=== PATIENT | male | born 1975 | race African-American/Black ===

== ENCOUNTER 2022-04-05 08:02 | Inpatient (IN) ==
[2022-04-05 08:50] LABS: Basophils % 0.1 % (0.0-0.8); Hematocrit 46.9 VOL% (42.0-52.0); Hemoglobin 15.5 GM/DL (14.0-18.0); Immature Granulocytes % 0.4 %; Immature Granulocytes Absolute 0.04 #; Lymphocytes # 0.6 10*3/uL (1.4-4.0); Mean Corpuscular Volume 82.4 FL (87-102); Mean Platelet Volume 9.9 FL (9.6-12.0); Monocytes # 0.2 10*3/uL (0.11-0.8); Monocytes % 1.7 % (1.7-12.7); Neutrophils % 91.8 % (38.7-73.9); Red Blood Count 5.69 MC/CUMM (3.8-5.5); Red Cell Distribution Width 14.7 % (9.3-17.3); White Blood Count 9.3 T/CUMM (4-12)
[2022-04-05 08:54] LABS: Platelet Count 85 T/CUMM (130-400)
[2022-04-05 09:15] LABS: Lymphocytes 3 % (20-55); Total Cells Counted 100
[2022-04-05 09:16] LABS: Polychromasia Slight
[2022-04-05 09:17] LABS: Hypochromia Slight; Ovalocytes Slight; Platelet Estimate Adequate
[2022-04-05 09:24] LABS: Acetaminophen 9.3 UG/ML (10-30)
[2022-04-05 09:26] LABS: Salicylate < 2.8 MG/DL (2.8-20)
[2022-04-05 09:30] LABS: Alanine Aminotransferase 4044 U/L (16-61); Albumin 3.9 G/DL (3.4-5.0); Alkaline Phosphatase 101 U/L (45-117); Aspartate Amino Transferase 3608 U/L (0-37); Blood Urea Nitrogen 11 MG/DL (7-18); Calcium 9.3 MG/DL (8.5-10.1); Carbon Dioxide 24 MMOL/L (21-32); Chloride 100 MMOL/L (98-107); Estimated Glom Filtration Rate 106 ML/MIN; Glucose 145 MG/DL (74-106); Osmolality,Calculated 274.8 MOS/KG (273-304); Potassium 2.6 MMOL/L (3.5-5.1); Sodium 137 MMOL/L (136-145); Total Protein 8.3 G/DL (6.4-8.2)
[2022-04-05] MEDS ORDERED: ACETYLCYSTEINE INJ 15,000 MG in DEXTROSE 5% 100 ML IV ONE (09:49)
[2022-04-05 10:31] LABS: INR 2.9
[2022-04-05 10:43] LABS: PT Patient Result 29.9 SECS (10.5-12.0)
[2022-04-05 11:08] LABS: Barbiturates Screen,Urine Negative (Negative); Benzodiazepines Screen,Urine Negative (Negative); Cannabinoid Screen,Urine Negative (Negative); Opiate Screen,Urine Negative (Negative); Phencyclidine Screen,Urine Negative (Negative)
[2022-04-05] MEDS ORDERED: LORazepam 2 MG/1 ML VIAL IV STA (11:52)
[2022-04-05] MEDS ORDERED: HALOPERIDOL 5 MG/ML AMP IV STA (11:52)
[2022-04-05] MEDS ORDERED: diphenhydrAMINE 50 MG/1 ML VIAL IV STA (11:52)
[2022-04-05] MEDS ORDERED: PHYTONADIONE 10 MG/1 ML AMP SUBCUT STA (14:16)
[2022-04-05] MEDS ORDERED: ACETYLCYSTEINE INJ 5,000 MG in DEXTROSE 5% 250 ML IV ONE (16:04)
[2022-04-05 16:41] LABS: Hepatitis B Core IgM Quant 0.11 Index; Hepatitis B Surface Ag Quant < 0.10 Index; Hepatitis B Surface Ag Result Non-Reactive (NonReactive); Hepatitis C Virus Ab Quant 0.08 Index; Hepatitis C Virus Ab Result Non-Reactive (NonReactive)
[2022-04-05] MEDS ORDERED: POTASSIUM CHLORIDE RIDER 10 MEQ/100 ML PREMIX IV PRN (17:18)
[2022-04-05] MEDS ORDERED: MAGNESIUM SULF RIDER 2 GM/50 ML PREMIX IV PRN (17:19)
[2022-04-05] MEDS ORDERED: MAGNESIUM SULF RIDER 4 GM/100 ML PREMIX IV PRN (17:19)
[2022-04-05] MEDS ORDERED: GLUCAGON 1 MG VIAL IM PRN (17:42)
[2022-04-05] MEDS ORDERED: DEXTROSE 10% 250 ML BAG IV PRN (18:04)
[2022-04-05] MEDS ORDERED: LORazepam 2 MG/1 ML VIAL IV PRN (18:06)
[2022-04-05] MEDS: DEXT 5% NACL 0.9% KCL 40 MEQ 40 MEQ/1,000 ML BAG IV SCH (18:44)
[2022-04-05] MEDS ORDERED: ACETYLCYSTEINE IV ONE (20:00)
[2022-04-05] MEDS ORDERED: DEXTROSE 5% IV ONE (20:00)
[2022-04-05] MEDS ORDERED: INSULIN LISPRO 100 UNIT/ML SUBCUT SCH (21:00)
[2022-04-05] MEDS: ACETYLCYSTEINE IV ONE (21:43)
[2022-04-05] MEDS: DEXTROSE 5% IV ONE (21:43)
[2022-04-06 00:40] LABS: Basophils % 0.1 % (0.0-0.8); Hematocrit 42.5 VOL% (42.0-52.0); Hemoglobin 13.8 GM/DL (14.0-18.0); Immature Granulocytes % 0.3 %; Immature Granulocytes Absolute 0.05 #; Lymphocytes # 0.5 10*3/uL (1.4-4.0); Lymphocytes % 3.5 % (21.2-54.2); Mean Corpuscular HGB Conc 32.5 GM/DL (32-36); Monocytes # 0.3 10*3/uL (0.11-0.8); Monocytes % 1.6 % (1.7-12.7); Neutrophils % 94.5 % (38.7-73.9); Platelet Count 88 T/CUMM (130-400); Red Blood Count 5.12 MC/CUMM (3.8-5.5); Red Cell Distribution Width 14.8 % (9.3-17.3); White Blood Count 15.3 T/CUMM (4-12)
[2022-04-06 00:52] LABS: INR 3.6
[2022-04-06 00:55] LABS: PT Patient Result 36.2 SECS (10.5-12.0)
[2022-04-06 01:06] LABS: Lymphocytes 5 % (20-55); Platelet Estimate Decreased; Total Cells Counted 100
[2022-04-06 03:10] LABS: Albumin 2.9 G/DL (3.4-5.0); Bilirubin,Total 3.7 MG/DL (0.20-1.00); Calcium 7.6 MG/DL (8.5-10.1); Osmolality,Calculated 284.4 MOS/KG (273-304); Potassium 3.7 MMOL/L (3.5-5.1); Thyroid Stimulating Hormone 0.765 uIU/ml (0.358-3.74); Total Protein 6.8 G/DL (6.4-8.2); VLDL Cholesterol 17.2 MG/DL
[2022-04-06] MEDS: DEXT 5% NACL 0.9% KCL 40 MEQ 40 MEQ/1,000 ML BAG IV SCH (03:11)
[2022-04-06] MEDS: DEXTROSE 5% IV ONE (03:18)
[2022-04-06] MEDS: ACETYLCYSTEINE IV ONE (03:18)
[2022-04-06] MEDS: LACTULOSE 20 GM/30 ML UDCUP PO SCH ×5 (05:55→21:52)
[2022-04-06] MEDS: DEXTROSE 5% NACL 0.45% 1,000 ML IV SCH ×3 (07:29→23:41)
[2022-04-06] MEDS: ONDANSETRON 4 MG/2 ML VIAL IV PRN ×2 (10:03→15:22)
[2022-04-06 14:28] LABS: Mucus,Urine Occasional /LPF (Occasional); RBC,Urine 630 /HPF (0-4); Squamous Epithelial Cell,Urine Occasional /HPF (0-10)
[2022-04-06 14:44] LABS: Bilirubin,Urine Small mg/dL (Negative); Blood, Urine Large mg/dL (Negative); Glucose,Urine (UA) 100 mg/dL (Negative); Ketones,Urine 15 mg/dL (Negative); Nitrite,Urine Negative (Negative); Protein,Urine 100 mg/dL (Negative); Urine Appearance Clear (Clear); Urine Color Yellow (Yellow); Urine Specific Gravity > 1.030 (1.001-1.035); Urine Urobilinogen 0.2 eU/dL (<2.0); Urine pH 5.5 (4.5-8.0)
[2022-04-06 17:13] LABS: INR 3.1
[2022-04-06 17:36] LABS: Albumin 2.4 G/DL (3.4-5.0); Bilirubin,Total 2.4 MG/DL (0.20-1.00); Calcium 6.8 MG/DL (8.5-10.1); Osmolality,Calculated 288.6 MOS/KG (273-304); Potassium 2.7 MMOL/L (3.5-5.1); Total Protein 5.8 G/DL (6.4-8.2)
[2022-04-06] MEDS ORDERED: DEXTROSE 5% IV ONE (18:00)
[2022-04-06] MEDS ORDERED: ACETYLCYSTEINE IV ONE (18:00)
[2022-04-06 19:31] LABS: Albumin 2.9 G/DL (3.4-5.0); Bilirubin,Total 2.8 MG/DL (0.20-1.00); Calcium 8.1 MG/DL (8.5-10.1); Potassium 3.2 MMOL/L (3.5-5.1); Total Protein 6.5 G/DL (6.4-8.2)
[2022-04-06] MEDS ORDERED: POTASSIUM CHLORIDE 20 MEQ TABLET PO ONE (19:49)
[2022-04-06] MEDS ORDERED: hydrALAZINE 20 MG/1 ML VIAL IV ONE (23:19)
[2022-04-07] MEDS ORDERED: LABETALOL 20 MG/4 ML SYRINGE IV ONE (00:31)
[2022-04-07] MEDS: ONDANSETRON 4 MG/2 ML VIAL IV PRN ×2 (01:17→06:17)
[2022-04-07] MEDS: LACTULOSE 20 GM/30 ML UDCUP PO SCH ×2 (01:23→06:03)
[2022-04-07 04:14] LABS: Basophils % 0.2 % (0.0-0.8); Hematocrit 42.2 VOL% (42.0-52.0); Hemoglobin 14.5 GM/DL (14.0-18.0); Immature Granulocytes % 0.4 %; Immature Granulocytes Absolute 0.02 #; Lymphocytes # 0.8 10*3/uL (1.4-4.0); Mean Corpuscular HGB Conc 34.4 GM/DL (32-36); Mean Corpuscular Volume 80.2 FL (87-102); Mean Platelet Volume 10.3 FL (9.6-12.0); Monocytes # 0.2 10*3/uL (0.11-0.8); Monocytes % 4.8 % (1.7-12.7); Neutrophils % 78.6 % (38.7-73.9); Platelet Count 67 T/CUMM (130-400); Red Blood Count 5.26 MC/CUMM (3.8-5.5); Red Cell Distribution Width 13.7 % (9.3-17.3); White Blood Count 4.8 T/CUMM (4-12)
[2022-04-07 04:40] LABS: Platelet Estimate Decreased
[2022-04-07 04:43] LABS: INR 2.4; Partial Thromboplastin Time 34.9 SECS (23.8-32.1)
[2022-04-07 04:45] LABS: PT Patient Result 25.1 SECS (10.5-12.0)
[2022-04-07 04:48] LABS: Albumin 2.7 G/DL (3.4-5.0); Bilirubin,Total 3.3 MG/DL (0.20-1.00); Calcium 7.9 MG/DL (8.5-10.1); Osmolality,Calculated 278.2 MOS/KG (273-304); Potassium 3.8 MMOL/L (3.5-5.1); Total Protein 6.2 G/DL (6.4-8.2)
[2022-04-07] MEDS: DEXTROSE 5% NACL 0.45% 1,000 ML IV SCH (08:26)
[2022-04-07] MEDS ORDERED: amLODIPine 5 MG TABLET PO SCH (09:00)
[2022-04-07] MEDS: LACTULOSE 20 GM/30 ML UDCUP NG SCH ×4 (09:42→21:00)
[2022-04-07 10:27] LABS: Bilirubin,Urine Small mg/dL (Negative); Glucose,Urine (UA) 100 mg/dL (Negative); Ketones,Urine Negative (Negative); Nitrite,Urine Negative (Negative); Protein,Urine >=300 mg/dL (Negative); RBC,Urine 121 /HPF (0-4); Urine Appearance Clear (Clear); Urine Color Yellow (Yellow)
[2022-04-07 10:28] LABS: Blood, Urine Large mg/dL (Negative); Urine Urobilinogen 0.2 eU/dL (<2.0)
[2022-04-07] MEDS ORDERED: DEXTROSE 5% IV SCH (11:00)
[2022-04-07] MEDS ORDERED: ACETYLCYSTEINE IV SCH (11:00)
[2022-04-07] MEDS ORDERED: amLODIPine 5 MG TABLET PO ONE (11:10)
[2022-04-07] MEDS: LABETALOL 20 MG/4 ML SYRINGE IV PRN (11:18)
[2022-04-07] MEDS: cloNIDine 0.1 MG TABLET PO SCH (21:00)
[2022-04-08] MEDS: LACTULOSE 20 GM/30 ML UDCUP NG SCH ×6 (02:40→21:22)
[2022-04-08] MEDS: LABETALOL 20 MG/4 ML SYRINGE IV PRN ×2 (04:00→18:22)
[2022-04-08 04:23] LABS: Basophils % 0.4 % (0.0-0.8); Eosinophils % 0.7 % (0.00-10.9); Hematocrit 42.1 VOL% (42.0-52.0); Hemoglobin 14.5 GM/DL (14.0-18.0); Immature Granulocytes % 0.2 %; Immature Granulocytes Absolute 0.01 #; Lymphocytes % 23.1 % (21.2-54.2); Mean Corpuscular HGB Conc 34.4 GM/DL (32-36); Mean Corpuscular Volume 78.5 FL (87-102); Monocytes # 0.4 10*3/uL (0.11-0.8); Monocytes % 9.4 % (1.7-12.7); NRBC # 0.03 10*3/uL; Neutrophils % 66.2 % (38.7-73.9); Platelet Count 80 T/CUMM (130-400); Red Blood Count 5.36 MC/CUMM (3.8-5.5); Red Cell Distribution Width 13.6 % (9.3-17.3); White Blood Count 4.5 T/CUMM (4-12)
[2022-04-08] MEDS: DEXTROSE 5% IV SCH ×2 (04:30→21:01)
[2022-04-08] MEDS: ACETYLCYSTEINE IV SCH ×2 (04:30→21:01)
[2022-04-08 04:31] LABS: INR 1.8; PT Patient Result 18.9 SECS (10.5-12.0)
[2022-04-08 04:40] LABS: Hypochromia Slight; Microcytosis Slight; Platelet Estimate Decreased
[2022-04-08 04:54] LABS: Albumin 2.7 G/DL (3.4-5.0); Bilirubin,Total 4.9 MG/DL (0.20-1.00); Calcium 8.1 MG/DL (8.5-10.1); Total Protein 6.1 G/DL (6.4-8.2)
[2022-04-08 04:58] LABS: Potassium 2.5 MMOL/L (3.5-5.1)
[2022-04-08] MEDS ORDERED: POTASSIUM BICARB EFFERVESCENT 20 MEQ TAB.EFF PO ONE ×4 (05:06→20:30)
[2022-04-08] MEDS ORDERED: SODIUM CHLOR 0.45% KCL 20 MEQ 20 MEQ/1,000 ML BAG IV SCH (05:30)
[2022-04-08] MEDS: ONDANSETRON 4 MG/2 ML VIAL IV PRN ×2 (05:46→22:00)
[2022-04-08] MEDS: DEXT 5% NACL 0.45% KCL 40 MEQ 40 MEQ/1,000 ML BAG IV SCH (06:44)
[2022-04-08] MEDS: METOCLOPRAMIDE 10 MG/2 ML VIAL IV SCH ×4 (06:55→23:51)
[2022-04-08] MEDS: amLODIPine 10 MG TABLET PO SCH (09:04)
[2022-04-08] MEDS: cloNIDine 0.1 MG TABLET PO SCH ×2 (09:04→20:39)
[2022-04-08] MEDS: PANTOPRAZOLE 40 MG VIAL IV SCH (23:51)
[2022-04-09] MEDS: LACTULOSE 20 GM/30 ML UDCUP NG SCH ×6 (01:42→23:02)
[2022-04-09 03:47] LABS: Basophils # 0.1 10*3/uL (0.0-0.2); Basophils % 0.6 % (0.0-0.8); Eosinophils # 0.1 10*3/uL (0.0-0.87); Eosinophils % 1.3 % (0.00-10.9); Hematocrit 39.7 VOL% (42.0-52.0); Immature Granulocytes % 2.4 %; Immature Granulocytes Absolute 0.26 #; Lymphocytes # 1.7 10*3/uL (1.4-4.0); Lymphocytes % 15.3 % (21.2-54.2); Mean Corpuscular HGB Conc 35.3 GM/DL (32-36); Mean Corpuscular Volume 77.7 FL (87-102); Mean Platelet Volume 10.8 FL (9.6-12.0); Monocytes % 9.6 % (1.7-12.7); Neutrophils % 70.8 % (38.7-73.9); Platelet Count 101 T/CUMM (130-400); Red Blood Count 5.11 MC/CUMM (3.8-5.5); Red Cell Distribution Width 13.5 % (9.3-17.3); White Blood Count 10.9 T/CUMM (4-12)
[2022-04-09] MEDS: ONDANSETRON 4 MG/2 ML VIAL IV PRN ×4 (03:51→21:16)
[2022-04-09 03:55] LABS: INR 1.5; PT Patient Result 16.3 SECS (10.5-12.0)
[2022-04-09 04:05] LABS: Platelet Estimate Decreased
[2022-04-09 04:15] LABS: Albumin 2.7 G/DL (3.4-5.0); Bilirubin,Total 4.2 MG/DL (0.20-1.00); Calcium 8.3 MG/DL (8.5-10.1); Osmolality,Calculated 288.2 MOS/KG (273-304); Total Protein 6.1 G/DL (6.4-8.2)
[2022-04-09 04:29] LABS: Potassium 2.5 MMOL/L (3.5-5.1)
[2022-04-09] MEDS: POTASSIUM CHLORIDE RIDER 10 MEQ/100 ML PREMIX IV SCH ×2 (04:59→05:54)
[2022-04-09] MEDS ORDERED: POTASSIUM CHLORIDE RIDER 10 MEQ/100 ML PREMIX IV SCH (05:00)
[2022-04-09] MEDS: METOCLOPRAMIDE 10 MG/2 ML VIAL IV SCH ×4 (06:21→23:05)
[2022-04-09] MEDS ORDERED: POTASSIUM BICARB EFFERVESCENT 20 MEQ TAB.EFF PO ONE (07:34)
[2022-04-09] MEDS: amLODIPine 10 MG TABLET PO SCH (08:33)
[2022-04-09] MEDS: cloNIDine 0.1 MG TABLET PO SCH ×2 (08:33→20:44)
[2022-04-09] MEDS: PANTOPRAZOLE 40 MG VIAL IV SCH ×3 (08:34→21:00)
[2022-04-09 09:17] LABS: Calcium 8.2 MG/DL (8.5-10.1); Osmolality,Calculated 292.1 MOS/KG (273-304); Potassium 2.6 MMOL/L (3.5-5.1)
[2022-04-09] MEDS: THIAMINE 200 MG/2 ML VIAL IV SCH (09:26)
[2022-04-09 09:39] LABS: Folate 9.71 NG/ML (5.38-24.0); Vitamin B12 > 2000 PG/ML (211-911)
[2022-04-09] MEDS: DEXT 5% NACL 0.45% KCL 40 MEQ 40 MEQ/1,000 ML BAG IV SCH (09:57)
[2022-04-09] MEDS: carvediloL 12.5 MG TABLET PO SCH ×2 (10:38→20:44)
[2022-04-09] MEDS: LABETALOL 20 MG/4 ML SYRINGE IV PRN ×2 (11:23→18:35)
[2022-04-09] MEDS: ACETYLCYSTEINE IV SCH (13:01)
[2022-04-09] MEDS: DEXTROSE 5% IV SCH (13:01)
[2022-04-09] MEDS: POTASSIUM BICARB EFFERVESCENT 20 MEQ TAB.EFF PO SCH ×2 (14:50→20:44)
[2022-04-10] MEDS: LACTULOSE 20 GM/30 ML UDCUP NG SCH ×6 (02:11→21:15)
[2022-04-10] MEDS: ONDANSETRON 4 MG/2 ML VIAL IV PRN ×2 (03:04→07:24)
[2022-04-10] MEDS: METOCLOPRAMIDE 10 MG/2 ML VIAL IV SCH ×3 (05:08→17:52)
[2022-04-10] MEDS: ACETYLCYSTEINE IV SCH (05:09)
[2022-04-10] MEDS: DEXTROSE 5% IV SCH (05:09)
[2022-04-10 05:28] LABS: Basophils # 0.1 10*3/uL (0.0-0.2); Basophils % 0.6 % (0.0-0.8); Eosinophils # 0.5 10*3/uL (0.0-0.87); Hematocrit 34.5 VOL% (42.0-52.0); Hemoglobin 12.3 GM/DL (14.0-18.0); Immature Granulocytes % 3.6 %; Immature Granulocytes Absolute 0.56 #; Lymphocytes # 2.5 10*3/uL (1.4-4.0); Lymphocytes % 15.7 % (21.2-54.2); Mean Corpuscular HGB Conc 35.7 GM/DL (32-36); Mean Corpuscular Volume 78.1 FL (87-102); Mean Platelet Volume 11.3 FL (9.6-12.0); Monocytes # 1.3 10*3/uL (0.11-0.8); Monocytes % 8.3 % (1.7-12.7); NRBC # 0.02 10*3/uL; Neutrophils % 68.8 % (38.7-73.9); Platelet Count 106 T/CUMM (130-400); Red Blood Count 4.42 MC/CUMM (3.8-5.5); Red Cell Distribution Width 13.9 % (9.3-17.3); White Blood Count 15.7 T/CUMM (4-12)
[2022-04-10 05:47] LABS: Albumin 2.4 G/DL (3.4-5.0); Bilirubin,Total 3.1 MG/DL (0.20-1.00); Calcium 7.7 MG/DL (8.5-10.1); Potassium 2.9 MMOL/L (3.5-5.1); Total Protein 5.7 G/DL (6.4-8.2)
[2022-04-10 05:49] LABS: Eosinophils 3 % (0-10); Lymphocytes 14 % (20-55); Total Cells Counted 100
[2022-04-10] MEDS: cloNIDine 0.1 MG TABLET PO SCH ×2 (09:25→21:16)
[2022-04-10] MEDS: carvediloL 12.5 MG TABLET PO SCH ×2 (09:25→21:16)
[2022-04-10] MEDS: amLODIPine 10 MG TABLET PO SCH (09:25)
[2022-04-10] MEDS: POTASSIUM BICARB EFFERVESCENT 20 MEQ TAB.EFF PO SCH ×3 (09:25→21:14)
[2022-04-10] MEDS: PANTOPRAZOLE 40 MG VIAL IV SCH ×2 (09:26→21:16)
[2022-04-10] MEDS: THIAMINE 200 MG/2 ML VIAL IV SCH (09:28)
[2022-04-10] MEDS: DEXT 5% NACL 0.45% KCL 40 MEQ 40 MEQ/1,000 ML BAG IV SCH (14:33)
[2022-04-11] MEDS: METOCLOPRAMIDE 10 MG/2 ML VIAL IV SCH ×4 (00:38→23:00)
[2022-04-11] MEDS: LACTULOSE 20 GM/30 ML UDCUP NG SCH ×5 (01:18→21:35)
[2022-04-11 05:51] LABS: Basophils # 0.1 10*3/uL (0.0-0.2); Basophils % 0.6 % (0.0-0.8); Eosinophils # 0.4 10*3/uL (0.0-0.87); Eosinophils % 2.8 % (0.00-10.9); Hematocrit 34.9 VOL% (42.0-52.0); Hemoglobin 11.9 GM/DL (14.0-18.0); Immature Granulocytes % 3.6 %; Immature Granulocytes Absolute 0.56 #; Lymphocytes % 19.1 % (21.2-54.2); Mean Corpuscular HGB Conc 34.1 GM/DL (32-36); Mean Corpuscular Volume 79.1 FL (87-102); Mean Platelet Volume 11.4 FL (9.6-12.0); Monocytes # 1.5 10*3/uL (0.11-0.8); Monocytes % 9.7 % (1.7-12.7); Neutrophils % 64.2 % (38.7-73.9); Platelet Count 109 T/CUMM (130-400); Red Blood Count 4.41 MC/CUMM (3.8-5.5); Red Cell Distribution Width 14.4 % (9.3-17.3); White Blood Count 15.5 T/CUMM (4-12)
[2022-04-11 06:00] LABS: INR 1.2; PT Patient Result 12.7 SECS (10.5-12.0)
[2022-04-11 06:15] LABS: Eosinophils 1 % (0-10); Lymphocytes 26 % (20-55); Total Cells Counted 100
[2022-04-11 06:22] LABS: Albumin 2.3 G/DL (3.4-5.0); Calcium 8.3 MG/DL (8.5-10.1); Osmolality,Calculated 294.4 MOS/KG (273-304); Potassium 3.2 MMOL/L (3.5-5.1); Total Protein 5.8 G/DL (6.4-8.2)
[2022-04-11] MEDS: cloNIDine 0.1 MG TABLET PO SCH ×2 (08:21→21:36)
[2022-04-11] MEDS: amLODIPine 10 MG TABLET PO SCH (08:21)
[2022-04-11] MEDS: carvediloL 12.5 MG TABLET PO SCH ×2 (08:21→21:42)
[2022-04-11] MEDS: POTASSIUM BICARB EFFERVESCENT 20 MEQ TAB.EFF PO SCH ×3 (08:21→21:36)
[2022-04-11] MEDS: PANTOPRAZOLE 40 MG VIAL IV SCH ×2 (08:22→21:36)
[2022-04-11] MEDS: THIAMINE 200 MG/2 ML VIAL IV SCH (08:29)
[2022-04-11] MEDS: DEXT 5% NACL 0.45% KCL 40 MEQ 40 MEQ/1,000 ML BAG IV SCH (14:52)
[2022-04-12 05:23] LABS: Basophils % 0.3 % (0.0-0.8); Eosinophils # 0.2 10*3/uL (0.0-0.87); Eosinophils % 1.9 % (0.00-10.9); Hematocrit 34.2 VOL% (42.0-52.0); Hemoglobin 11.8 GM/DL (14.0-18.0); Immature Granulocytes % 1.6 %; Immature Granulocytes Absolute 0.19 #; Lymphocytes # 2.3 10*3/uL (1.4-4.0); Lymphocytes % 19.2 % (21.2-54.2); Mean Corpuscular HGB Conc 34.5 GM/DL (32-36); Mean Corpuscular Volume 80.1 FL (87-102); Mean Platelet Volume 11.3 FL (9.6-12.0); Monocytes # 1.4 10*3/uL (0.11-0.8); Monocytes % 11.8 % (1.7-12.7); Neutrophils % 65.2 % (38.7-73.9); Platelet Count 120 T/CUMM (130-400); Red Blood Count 4.27 MC/CUMM (3.8-5.5); White Blood Count 11.8 T/CUMM (4-12)
[2022-04-12 05:31] LABS: INR 1.1
[2022-04-12 05:41] LABS: Albumin 2.4 G/DL (3.4-5.0); Bilirubin,Total 1.4 MG/DL (0.20-1.00); Calcium 8.5 MG/DL (8.5-10.1); Potassium 3.3 MMOL/L (3.5-5.1); Total Protein 6.3 G/DL (6.4-8.2)
[2022-04-12] MEDS: METOCLOPRAMIDE 10 MG/2 ML VIAL IV SCH ×3 (06:03→16:18)
[2022-04-12] MEDS: cloNIDine 0.1 MG TABLET PO SCH ×2 (09:49→21:25)
[2022-04-12] MEDS: amLODIPine 10 MG TABLET PO SCH (09:49)
[2022-04-12] MEDS: POTASSIUM BICARB EFFERVESCENT 20 MEQ TAB.EFF PO SCH ×3 (09:49→21:25)
[2022-04-12] MEDS: LACTULOSE 20 GM/30 ML UDCUP NG SCH ×2 (09:49→21:25)
[2022-04-12] MEDS: carvediloL 12.5 MG TABLET PO SCH ×2 (09:49→21:25)
[2022-04-12] MEDS: PANTOPRAZOLE 40 MG VIAL IV SCH ×2 (09:50→21:25)
[2022-04-12] MEDS: THIAMINE 200 MG/2 ML VIAL IV SCH (09:50)
[2022-04-12] MEDS: DEXT 5% NACL 0.45% KCL 40 MEQ 40 MEQ/1,000 ML BAG IV SCH (15:54)
[2022-04-13 05:19] LABS: INR 1.1; PT Patient Result 11.7 SECS (10.5-12.0)
[2022-04-13] MEDS: METOCLOPRAMIDE 10 MG/2 ML VIAL IV SCH ×5 (05:25→23:32)
[2022-04-13] MEDS: cloNIDine 0.1 MG TABLET PO SCH ×2 (09:32→21:54)
[2022-04-13] MEDS: amLODIPine 10 MG TABLET PO SCH (09:33)
[2022-04-13] MEDS: carvediloL 12.5 MG TABLET PO SCH ×2 (09:33→21:54)
[2022-04-13] MEDS: POTASSIUM BICARB EFFERVESCENT 20 MEQ TAB.EFF PO SCH ×3 (09:33→21:54)
[2022-04-13] MEDS: LACTULOSE 20 GM/30 ML UDCUP NG SCH ×2 (09:34→21:53)
[2022-04-13] MEDS: PANTOPRAZOLE 40 MG VIAL IV SCH ×2 (09:35→21:55)
[2022-04-13] MEDS: THIAMINE 200 MG/2 ML VIAL IV SCH (09:35)
[2022-04-13] MEDS: NEOMYC/POLYMYX/DEXAMETH OPH SUSP 5 ML BOTTLE LEFT EYE SCH ×2 (16:20→21:56)
[2022-04-13] MEDS: DEXT 5% NACL 0.45% KCL 40 MEQ 40 MEQ/1,000 ML BAG IV SCH (16:22)
[2022-04-14] MEDS: METOCLOPRAMIDE 10 MG/2 ML VIAL IV SCH ×4 (00:15→17:39)
[2022-04-14 05:20] LABS: Basophils % 0.2 % (0.0-0.8); Eosinophils # 0.1 10*3/uL (0.0-0.87); Eosinophils % 1.7 % (0.00-10.9); Hematocrit 36.6 VOL% (42.0-52.0); Hemoglobin 12.3 GM/DL (14.0-18.0); Immature Granulocytes % 0.6 %; Immature Granulocytes Absolute 0.05 #; Lymphocytes # 1.9 10*3/uL (1.4-4.0); Lymphocytes % 22.6 % (21.2-54.2); Mean Corpuscular HGB Conc 33.6 GM/DL (32-36); Mean Corpuscular Volume 82.1 FL (87-102); Mean Platelet Volume 11.5 FL (9.6-12.0); Monocytes % 11.7 % (1.7-12.7); Neutrophils % 63.2 % (38.7-73.9); Platelet Count 153 T/CUMM (130-400); Red Blood Count 4.46 MC/CUMM (3.8-5.5); Red Cell Distribution Width 15.9 % (9.3-17.3); White Blood Count 8.2 T/CUMM (4-12)
[2022-04-14 05:33] LABS: INR 1.1; PT Patient Result 11.9 SECS (10.5-12.0)
[2022-04-14 05:40] LABS: Albumin 2.7 G/DL (3.4-5.0); Bilirubin,Total 1.2 MG/DL (0.20-1.00); Calcium 8.3 MG/DL (8.5-10.1); Osmolality,Calculated 297.5 MOS/KG (273-304); Potassium 4.5 MMOL/L (3.5-5.1); Total Protein 7.6 G/DL (6.4-8.2)
[2022-04-14] MEDS: carvediloL 12.5 MG TABLET PO SCH ×2 (09:47→21:50)
[2022-04-14] MEDS: LACTULOSE 20 GM/30 ML UDCUP NG SCH ×2 (09:47→21:50)
[2022-04-14] MEDS: NEOMYC/POLYMYX/DEXAMETH OPH SUSP 5 ML BOTTLE LEFT EYE SCH ×4 (09:47→21:50)
[2022-04-14] MEDS: amLODIPine 10 MG TABLET PO SCH (09:47)
[2022-04-14] MEDS: cloNIDine 0.1 MG TABLET PO SCH ×2 (09:47→21:50)
[2022-04-14] MEDS: PANTOPRAZOLE 40 MG VIAL IV SCH ×2 (09:50→21:40)
[2022-04-14] MEDS: THIAMINE 200 MG/2 ML VIAL IV SCH (09:57)
[2022-04-14] MEDS: POTASSIUM BICARB EFFERVESCENT 20 MEQ TAB.EFF PO SCH (10:04)
[2022-04-14] MEDS: DEXT 5% NACL 0.45% KCL 40 MEQ 40 MEQ/1,000 ML BAG IV SCH (14:30)
[2022-04-15 05:22] LABS: Basophils % 0.4 % (0.0-0.8); Eosinophils # 0.1 10*3/uL (0.0-0.87); Eosinophils % 1.6 % (0.00-10.9); Hematocrit 37.3 VOL% (42.0-52.0); Hemoglobin 12.1 GM/DL (14.0-18.0); Immature Granulocytes % 0.4 %; Immature Granulocytes Absolute 0.03 #; Lymphocytes # 1.7 10*3/uL (1.4-4.0); Lymphocytes % 20.1 % (21.2-54.2); Mean Corpuscular HGB Conc 32.4 GM/DL (32-36); Mean Corpuscular Volume 82.9 FL (87-102); Mean Platelet Volume 11.4 FL (9.6-12.0); Monocytes % 12.1 % (1.7-12.7); Neutrophils % 65.4 % (38.7-73.9); Platelet Count 165 T/CUMM (130-400); White Blood Count 8.4 T/CUMM (4-12)
[2022-04-15] MEDS: METOCLOPRAMIDE 10 MG/2 ML VIAL IV SCH ×3 (05:50→16:51)
[2022-04-15 05:51] LABS: Albumin 2.9 G/DL (3.4-5.0); Bilirubin,Total 1.3 MG/DL (0.20-1.00); Calcium 8.6 MG/DL (8.5-10.1); Osmolality,Calculated 292.5 MOS/KG (273-304); Potassium 4.6 MMOL/L (3.5-5.1); Total Protein 7.6 G/DL (6.4-8.2)
[2022-04-15] MEDS: THIAMINE 200 MG/2 ML VIAL IV SCH (09:18)
[2022-04-15] MEDS: PANTOPRAZOLE 40 MG VIAL IV SCH ×2 (09:19→21:08)
[2022-04-15] MEDS: LACTULOSE 20 GM/30 ML UDCUP NG SCH ×2 (09:26→21:08)
[2022-04-15] MEDS: cloNIDine 0.1 MG TABLET PO SCH ×2 (09:26→21:08)
[2022-04-15] MEDS: amLODIPine 10 MG TABLET PO SCH (09:26)
[2022-04-15] MEDS: carvediloL 12.5 MG TABLET PO SCH ×2 (09:26→21:08)
[2022-04-15] MEDS: NEOMYC/POLYMYX/DEXAMETH OPH SUSP 5 ML BOTTLE LEFT EYE SCH ×4 (10:15→21:08)
[2022-04-15] MEDS: SODIUM CHLORIDE 0.9% 1,000 ML IV SCH (13:18)
[2022-04-16] MEDS: SODIUM CHLORIDE 0.9% 1,000 ML IV SCH ×2 (01:18→12:06)
[2022-04-16] MEDS: METOCLOPRAMIDE 10 MG/2 ML VIAL IV SCH ×4 (01:19→17:29)
[2022-04-16 05:09] LABS: Basophils % 0.2 % (0.0-0.8); Eosinophils % 0.2 % (0.00-10.9); Hematocrit 37.5 VOL% (42.0-52.0); Hemoglobin 12.3 GM/DL (14.0-18.0); Immature Granulocytes % 0.4 %; Immature Granulocytes Absolute 0.04 #; Lymphocytes # 1.3 10*3/uL (1.4-4.0); Lymphocytes % 12.3 % (21.2-54.2); Mean Corpuscular HGB Conc 32.8 GM/DL (32-36); Mean Platelet Volume 11.1 FL (9.6-12.0); Monocytes % 9.6 % (1.7-12.7); Neutrophils % 77.3 % (38.7-73.9); Platelet Count 180 T/CUMM (130-400); Red Blood Count 4.52 MC/CUMM (3.8-5.5); Red Cell Distribution Width 16.1 % (9.3-17.3); White Blood Count 10.3 T/CUMM (4-12)
[2022-04-16 05:27] LABS: Albumin 2.9 G/DL (3.4-5.0); Bilirubin,Total 1.1 MG/DL (0.20-1.00); Calcium 8.5 MG/DL (8.5-10.1); Osmolality,Calculated 287.4 MOS/KG (273-304); Potassium 4.4 MMOL/L (3.5-5.1); Total Protein 8.2 G/DL (6.4-8.2)
[2022-04-16] MEDS: carvediloL 12.5 MG TABLET PO SCH ×2 (09:11→21:53)
[2022-04-16] MEDS: amLODIPine 10 MG TABLET PO SCH (09:11)
[2022-04-16] MEDS: cloNIDine 0.1 MG TABLET PO SCH ×2 (09:11→21:53)
[2022-04-16] MEDS: LACTULOSE 20 GM/30 ML UDCUP NG SCH ×2 (09:11→21:53)
[2022-04-16] MEDS: PANTOPRAZOLE 40 MG VIAL IV SCH ×2 (09:16→21:53)
[2022-04-16] MEDS: THIAMINE 200 MG/2 ML VIAL IV SCH (09:21)
[2022-04-16] MEDS: NEOMYC/POLYMYX/DEXAMETH OPH SUSP 5 ML BOTTLE LEFT EYE SCH ×4 (09:30→21:54)
[2022-04-17] MEDS: SODIUM CHLORIDE 0.9% 1,000 ML IV SCH ×3 (00:19→11:20)
[2022-04-17] MEDS: METOCLOPRAMIDE 10 MG/2 ML VIAL IV SCH ×4 (00:19→17:36)
[2022-04-17 05:51] LABS: Basophils % 0.3 % (0.0-0.8); Eosinophils # 0.1 10*3/uL (0.0-0.87); Eosinophils % 0.7 % (0.00-10.9); Hematocrit 33.2 VOL% (42.0-52.0); Immature Granulocytes % 0.4 %; Immature Granulocytes Absolute 0.04 #; Lymphocytes # 2.1 10*3/uL (1.4-4.0); Lymphocytes % 23.2 % (21.2-54.2); Mean Corpuscular HGB Conc 33.1 GM/DL (32-36); Mean Corpuscular Volume 83.6 FL (87-102); Mean Platelet Volume 11.3 FL (9.6-12.0); Monocytes # 1.4 10*3/uL (0.11-0.8); Monocytes % 15.2 % (1.7-12.7); Neutrophils % 60.2 % (38.7-73.9); Platelet Count 156 T/CUMM (130-400); Red Blood Count 3.97 MC/CUMM (3.8-5.5); Red Cell Distribution Width 16.1 % (9.3-17.3); White Blood Count 8.9 T/CUMM (4-12)
[2022-04-17 06:13] LABS: Albumin 2.6 G/DL (3.4-5.0); Calcium 7.9 MG/DL (8.5-10.1); Osmolality,Calculated 280.4 MOS/KG (273-304); Potassium 3.7 MMOL/L (3.5-5.1); Total Protein 7.3 G/DL (6.4-8.2)
[2022-04-17 08:43] LABS: Bilirubin,Urine Negative (Negative); Glucose,Urine (UA) Negative (Negative); Ketones,Urine Negative (Negative); Nitrite,Urine Negative (Negative); Protein,Urine Negative (Negative); Urine Appearance Clear (Clear); Urine Color Yellow (Yellow); Urine Specific Gravity 1.015 (1.001-1.035)
[2022-04-17 08:44] LABS: Blood, Urine Small mg/dL (Negative); Urine Urobilinogen 0.2 eU/dL (<2.0)
[2022-04-17] MEDS: carvediloL 12.5 MG TABLET PO SCH ×2 (08:56→21:35)
[2022-04-17] MEDS: amLODIPine 10 MG TABLET PO SCH (08:56)
[2022-04-17] MEDS: LACTULOSE 20 GM/30 ML UDCUP NG SCH ×2 (08:57→21:35)
[2022-04-17] MEDS: cloNIDine 0.1 MG TABLET PO SCH ×2 (08:57→21:35)
[2022-04-17] MEDS: PANTOPRAZOLE 40 MG VIAL IV SCH ×2 (08:57→21:34)
[2022-04-17] MEDS: NEOMYC/POLYMYX/DEXAMETH OPH SUSP 5 ML BOTTLE LEFT EYE SCH ×4 (09:01→21:35)
[2022-04-17] MEDS: THIAMINE 200 MG/2 ML VIAL IV SCH (09:27)
[2022-04-17] MEDS: cefTRIAXone 1,000 MG in SODIUM CHLORIDE 0.9% 100 ML IV SCH (09:27)
[2022-04-17] MEDS ORDERED: methylPREDNISolone SOD SUC 125 MG/2 ML VIAL IV ONE (12:34)
[2022-04-18] MEDS: METOCLOPRAMIDE 10 MG/2 ML VIAL IV SCH ×5 (00:31→23:50)
[2022-04-18] MEDS: SODIUM CHLORIDE 0.9% 1,000 ML IV SCH ×4 (00:31→19:32)
[2022-04-18 05:11] LABS: Albumin 2.7 G/DL (3.4-5.0); Bilirubin,Total 0.8 MG/DL (0.20-1.00); Calcium 8.7 MG/DL (8.5-10.1); Osmolality,Calculated 282.4 MOS/KG (273-304); Potassium 4.1 MMOL/L (3.5-5.1)
[2022-04-18] MEDS: LACTULOSE 20 GM/30 ML UDCUP NG SCH ×2 (09:21→21:09)
[2022-04-18] MEDS: cloNIDine 0.1 MG TABLET PO SCH ×2 (09:21→21:09)
[2022-04-18] MEDS: carvediloL 12.5 MG TABLET PO SCH ×2 (09:22→21:09)
[2022-04-18] MEDS: amLODIPine 10 MG TABLET PO SCH (09:22)
[2022-04-18] MEDS: NEOMYC/POLYMYX/DEXAMETH OPH SUSP 5 ML BOTTLE LEFT EYE SCH ×4 (09:22→21:09)
[2022-04-18] MEDS: PANTOPRAZOLE 40 MG VIAL IV SCH ×2 (10:51→21:09)
[2022-04-18] MEDS: THIAMINE 200 MG/2 ML VIAL IV SCH (10:51)
[2022-04-18] MEDS: cefTRIAXone 1,000 MG in SODIUM CHLORIDE 0.9% 100 ML IV SCH (10:57)
[2022-04-18] MEDS ORDERED: FLUCONAZOLE 200 MG TABLET PO ONE (11:36)
[2022-04-18] MEDS: AMOXICILLIN/CLAV 875 MG TABLET PO SCH (21:09)
[2022-04-19] MEDS: METOCLOPRAMIDE 10 MG/2 ML VIAL IV SCH ×2 (06:10→11:48)
[2022-04-19] MEDS: SODIUM CHLORIDE 0.9% 1,000 ML IV SCH ×2 (06:11→11:48)
[2022-04-19] MEDS ORDERED: MICAFUNGIN 100 MG in SODIUM CHLORIDE 0.9% 100 ML IV SCH (09:00)
[2022-04-19 09:54] LABS: Albumin 2.8 G/DL (3.4-5.0); Bilirubin,Total 0.8 MG/DL (0.20-1.00); Calcium 7.9 MG/DL (8.5-10.1); Osmolality,Calculated 290.8 MOS/KG (273-304); Potassium 3.3 MMOL/L (3.5-5.1); Total Protein 7.7 G/DL (6.4-8.2)
[2022-04-19] MEDS ORDERED: POTASSIUM CHLORIDE 20 MEQ TABLET PO ONE (10:22)
[2022-04-19] MEDS: amLODIPine 10 MG TABLET PO SCH (10:35)
[2022-04-19] MEDS: AMOXICILLIN/CLAV 875 MG TABLET PO SCH (10:35)
[2022-04-19] MEDS: cloNIDine 0.1 MG TABLET PO SCH (10:36)
[2022-04-19] MEDS: THIAMINE 200 MG/2 ML VIAL IV SCH (10:36)
[2022-04-19] MEDS: carvediloL 12.5 MG TABLET PO SCH (10:36)
[2022-04-19] MEDS: PANTOPRAZOLE 40 MG VIAL IV SCH (10:36)
[2022-04-19] MEDS: LACTULOSE 20 GM/30 ML UDCUP NG SCH (10:36)
[2022-04-19] MEDS: NEOMYC/POLYMYX/DEXAMETH OPH SUSP 5 ML BOTTLE LEFT EYE SCH ×2 (10:37→14:09)
[2022-04-19 16:26] VITALS: BP 128/76
== END 2022-04-19 16:51 | disposition home or self-care (01) | DRG 917 ==
LOC: EDBD → N.ED 08:02 → N.EDINP 17:42 → SUATTDRO 17:42 → N.CC 19:17 → N.TELEN 04-10 21:29
PROVIDERS: ADMIT Internal Medicine; ATTEND Internal Medicine